=== PATIENT | male | born 2000 | race African-American/Black ===

== ENCOUNTER 2019-05-05 01:21 | Emergency (ER) | payer BC ==
[~2019-05-05] VITALS: Ht 182.9 cm; Wt 79.4 kg
[2019-05-05] MEDS ORDERED: IBUPROFEN 400400 M2 PO (01:27)
[2019-05-05] MEDS ORDERED: NORCO 5-325 TA1 EAC1 PO (03:21)
[2019-05-05 04:09] VITALS: BP 122/78
== END 2019-05-05 04:12 | disposition home or self-care (01) ==
LOC: ER 01:21
DX: M25.571 Pain in right ankle and joints of right foot (principal); W21.05XA Struck by basketball, initial encounter; Y93.67 Activity, basketball; Y92.39 Other specified sports and athletic area as the place of occurrence of the external cause; Y99.8 Other external cause status